=== PATIENT | female | born 1970 | race Caucasian/White ===

== ENCOUNTER 2017-01-08 10:32 | Emergency (ER) | payer OTHER ==
[~2017-01-08] VITALS: Ht 170.2 cm; Wt 93.2 kg
[~2017-01-08 10:32] MED LIST: ALBENZA200 MG PO; AMOXICILLIN/CL875 MG PO; AUGMENTIN875TAB PO; CEPHALEXIN500 MG PO; CLINDAGEL1 % EX; CONCERTA36 MG OR; DEPAKOTE250 MG OR; FLEXERIL5 M1 PO; FLONASE NASAL50 MCG; LISINOPRIL10 MG PO; MEBENDAZOLE PO; MEDDOSEPAK PO; NAPROSYN500 MG PO; PRILOSEC40 MG PO; TRIAMCINOLON0.11 EX; TRIAMCINOLON0.5 % EX; VENLAFAXINE H37.5 MG PO
[2017-01-08] MEDS ORDERED: KLS OMEPRAZ20 MG PO (10:42)
[2017-01-08] MEDS ORDERED: AMLODIPINE2.5 MG PO (10:42)
[2017-01-08] MEDS ORDERED: TROKENDI XR50 MG PO (10:43)
[2017-01-08 11:34] VITALS: BP 167/11
== END 2017-01-08 11:21 | disposition home or self-care (01) | DRG 103 ==
LOC: ED 10:32
DX: G44.40 Drug-induced headache, not elsewhere classified, not intractable (principal); R20.0 Anesthesia of skin; F31.9 Bipolar disorder, unspecified; F98.8 Other specified behavioral and emotional disorders with onset usually occurring in childhood and adolescence; G43.909 Migraine, unspecified, not intractable, without status migrainosus; T42.6X5A Adverse effect of other antiepileptic and sedative-hypnotic drugs, initial encounter